=== PATIENT | female | born 1995 | race Two or more races ===

== ENCOUNTER 2024-08-23 12:09 | Emergency (ER) | payer MEDICAID, OTHER ==
[~2024-08-23] VITALS: Ht 167.6 cm; Wt 93.7 kg
--- NOTE | 2024-08-23 12:40 | ED.PDOC ---
History of Present Illness HPI Comments 29 y/o F, with a Hx of chronic back pain and UTI's and is , currently, presents with c/o exacerbation of chronic intermittent back pain s/p mechanical trip and fall, today. Patient endorses on stepping backwards, while closing some curtains in her home and tripping over her son and falling backwards and landing on her back. She reports no LOC or additional injuries. 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 She states on this being her 3rd ([id number]), with LMP on 07/08/24. She denies any vaginal bleeding, abdominal cramping, or other associated symptoms or modifiers at this time. 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 History Family History Family History: Unknown Social History Smoker: Non-Smoker Alcohol: Denies ETOH Use Drugs: Denies Drug Use Lives In: Home Musculoskeletal: reports: back pain All Other Systems: Reviewed and Negative (negative unless otherwise stated above or in HPI) Physical Exam General Appearance: Moderate Distress HEENT: Normal ENT Inspection, Pharynx Normal, TMs Normal Neck: Full Range of Motion, Non-Tender, Normal, Normal Inspection Respiratory: Chest Non-Tender, Lungs Clear, No Accessory Muscle Use, No Respiratory Distress, Normal Breath Sounds Cardiovascular: No Edema, No JVD, No Murmur, No Gallop, Normal Peripheral Pulses, Regular Rate/Rhythm Breast Exam: Deferred Gastrointestinal: No Organomegaly, Non Tender, No Pulsatile Mass, Normal Bowel Sounds, Soft Genitalia: Deferred Pelvic: Deferred Rectal: Deferred Extremities: No calf tenderness, Normal capillary refill, Normal inspection, Normal range of motion, Non-tender, No pedal edema Musculoskeletal : Apperance: Normal Neurologic: Alert, 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 Was a procedure done?: No Differential Dx Considerations may include: musculoskeletal pain, fracture, dislocation, bruising, contusion, at-risk , threatened , chronic back pain exacerbation X-Ray, Labs, Meds, VS Vital Signs Date Time Temp Pulse Resp B/P (MAP) Pulse Ox O2 Delivery O2 Flow Rate FiO2 08/23/24 12:21 98.7 101 18 127/80 (96) 98 Lab Test 08/23/24 12:25 Range/Units Beta HCG, Quantitative Pending Patient alert. Complaining of back pain. Examination back is pristine. Vitals stable. No sign of any injury. Spine intact. No tenderness on palpation. Ultrasound no acute process. Was told to follow up with her OBGYN. Was told to follow up with her primary care physician. Was told to come back if there is any problem. Time of 1ST Reevaluation: 12:47 Reevaluation 1ST: Improved Patient Education/Counseling: Diagnosis, Treatment Family Education/Counseling: No Family Present Departure 1 Departure Time of Disposition: 12:48 Impression: Primary Impression: Normal Qualified Codes: Z34.90 - Encounter for supervision of normal , unspecified, unspecified trimester Additional Impression: Musculoskeletal pain Disposition: 01 HOME / SELF CARE / HOMELESS Condition: Good Discharged With: Self Critical Care Note Critical Care Time?: No Stability Stability form required: No Heart Score Heart Score: Heart Score Response (Comments) Value History N/A 0 EKG N/A 0 Age N/A 0 Risk Factors N/A 0 Troponin N/A 0 Total 0 I personally scribed for CHRISTIAN BATES MD ([email or web address]) on 08/23/24 at 12:39. Electronically submitted by Valente Denney ([email or web address]). CHRISTIAN BATES MD Aug 23, 2024 12:39
[2024-08-23 14:49] LABS: Urine Bacteria None Seen /hpf (None Seen)
--- NOTE | 2024-08-23 15:09 | DVH ---
EXAM: US OB ULTRASOUND COMP LESS 14WKS CLINICAL HISTORY: S/P FALL COMPARISON: None TECHNIQUE: Grayscale, color-flow Doppler, and spectral Doppler ultrasound of the pelvis is performed by transabdominal and transvaginal technique. Findings: Single live intrauterine with gestational sac, yolk sac and embryo visualized. heart rate of 127 bpm. Estimated gestational age 6 weeks 4 days based on parameters including crown-r ump length of 0.5 cm. Uterus measures 8.5 x 6.1 x 6.6 cm in size. Cervical os appears closed. 0.9 x 0.3 x 0.3 cm subchorionic hemorrhage. Right ovary measures 3.3 x 2.5 x 2.5 cm. 2.5 x 1.9 x 2.0 cm right ovarian hypoechoic lesion. Left ova ry measures 2.5 x 1.7 x 1.8 cm. Normal ovarian color Doppler flow bilaterally. No free fluid within the cul-de-sac. Impression: 1. Single live intrauterine with heart rate of 127 bpm. Estimated gestational age 6 w eeks 4 days with estimated date of confinement 04/14/2025. 2. Small subchorionic hemorrhage. Cervical os appears closed. 3. Bilateral ovaries grossly unremarkable. Right ovarian hemorrhagic versus corpus luteal cyst.
[2024-08-23 15:15] LABS: Urine Blood 1+ /uL (Negative); Urine Clarity Clear (Clear); Urine Color Yellow (Yellow); Urine Mucus FEW (None Seen); Urine Protein, UAD TRACE (Negative); Urine Specific Gravity 1.024 (1.001-1.035); Urine Squamous Epithelial Cell FEW /hpf (<5); Urine Urobilinogen Normal (Negative); Urine WBC 2 /hpf (0 - 5)
[2024-08-23 15:43] VITALS: BP 109/73; PULSE 82; RESP 20; TEMP 98.3; O2SAT 98
== END 2024-08-23 15:52 | disposition home or self-care (01) ==
LOC: ER 12:16
DX: O20.8 Other hemorrhage in early pregnancy (principal); R10.2 Pelvic and perineal pain; O36.8310 Maternal care for abnormalities of the fetal heart rate or rhythm, first trimester, not applicable or unspecified; G89.29 Other chronic pain; M79.18 Myalgia, other site; Z87.440 Personal history of urinary (tract) infections; Z3A.01 Less than 8 weeks gestation of pregnancy; W01.0XXA Fall on same level from slipping, tripping and stumbling without subsequent striking against object, initial encounter; Y93.89 Activity, other specified; Y92.89 Other specified places as the place of occurrence of the external cause; Y99.8 Other external cause status
CPT/HCPCS: 36415; 76801; 76817; 81001; 84702